=== PATIENT | male | born 1995 | race Two or more races ===

== ENCOUNTER 2020-04-05 00:12 | Emergency (ER) | payer OTHER ==
[~2020-04-05] VITALS: Ht 170.2 cm; Wt 75.0 kg
[2020-04-05] MEDS ORDERED: DiphenhydrAMINE HCL 50 MG/ML VIAL IM STA (00:29)
[2020-04-05] MEDS ORDERED: EPINEPHrine 1:1,000 [1 MG/ML] AMP IM ONE (00:30)
[2020-04-05] MEDS ORDERED: PredniSONE 20 MG TABLET PO ONE (00:30)
[2020-04-05] MEDS ORDERED: SODIUM CHLORIDE 0.9% 1,000 ML IV ONE (00:45)
[2020-04-05 01:38] LABS: GLUCOSE,POINT OF CARE 138 MG/DL (70-110)
[2020-04-05 02:35] VITALS: BP 114/81
== END 2020-04-05 02:45 | disposition home or self-care (01) ==
LOC: EMS 00:12
DX: T78.2XXA Anaphylactic shock, unspecified, initial encounter (principal)
CPT/HCPCS: 82962; 96372; 99291; J0171; J1200; J7030; J7512